=== PATIENT | male | born 2000 | race Two or more races ===

== ENCOUNTER 2021-01-22 14:38 | Emergency (ER) | payer SELFPAY ==
[~2021-01-22] VITALS: Ht 172.7 cm; Wt 73.0 kg
[2021-01-22] MEDS ORDERED: LORAZEPAM 0.5MG TABLET PO ONE (15:15)
[2021-01-22 16:06] LABS: BASOPHILS % 0.7 % (0.0-2.0); EOSINOPHILS % 2.2 % (0.0-5.0); HEMATOCRIT. 40.5 % (42.0-52.0); HEMOGLOBIN. 14.1 g/dL (14.0-18.0); LYMPHOCYTES % 22.7 % (20.0-50.0); MEAN CORPUSCULAR HEMOGLOBIN 30.1 pg (28.0-32.0); MEAN CORPUSCULAR VOLUME 86.6 fL (80.0-94.0); MEAN PLATELET VOLUME 7.9 fl (7.4-10.4); MONOCYTES % 7.6 % (2.0-8.0); NEUTROPHILS % 66.8 % (40.0-76.0); PLATELET 261 x1000/uL (130-400); RED BLOOD CELL COUNT 4.67 mill/uL (4.7-6.1); RED CELL DISTRIBUTION WIDTH 12.9 % (11.6-14.6)
[2021-01-22 16:14] LABS: CHLORIDE 110 mEq/L (98-107)
[2021-01-22 16:20] LABS: ETHANOL BLOOD < 10 mg/dL
[2021-01-22 16:22] LABS: CLARITY URINE TURBID (CLEAR); COLOR URINE YELLOW (YELLOW); KETONES URINE NEGATIVE (NEGATIVE); LEUKOCYTE ESTERASE URINE NEGATIVE (NEGATIVE); NITRITE URINE NEGATIVE (NEGATIVE); OCCULT BLOOD URINE NEGATIVE (NEGATIVE); PROTEIN URINE TRACE (NEGATIVE); SPECIFIC GRAVITY URINE 1.024 (1.005-1.030); UROBILINOGEN URINE 0.2 E.U./dL (0.2-1.0)
[2021-01-22 16:40] LABS: *AMPHETAMINES SCREEN URINE PRESUMTIVE POSITIVE (NEGATIVE); *BARBITURATES SCREEN URINE NEGATIVE (NEGATIVE); *BENZODIAZEPINES SCREEN URINE NEGATIVE (NEGATIVE); *COCAINE SCREEN URINE NEGATIVE (NEGATIVE); METHADONE URINE SCREEN NEGATIVE (NEGATIVE); OPIATES URINE SCREEN NEGATIVE (NEGATIVE)
[2021-01-22 16:41] LABS: CANNABINOID URINE SCREEN NEGATIVE (NEGATIVE); PHENCYCLIDINE URINE SCREEN NEGATIVE (NEGATIVE)
[2021-01-22 17:41] VITALS: BP 120/80
== END 2021-01-22 18:21 | disposition left against medical advice (07) ==
LOC: ER 14:38
DX: F15.10 Other stimulant abuse, uncomplicated (principal)
CPT/HCPCS: 36415; 80053; 80305; 80307; 80320; 80329; 81003; 85025; 93005; 99284; Z7610; G0480

== ENCOUNTER 2025-03-27 12:29 | Emergency (ER) | payer OTHER ==
[~2025-03-27] VITALS: Ht 167.6 cm; Wt 68.0 kg
[2025-03-27 12:32] VITALS: O2SAT 99
[2025-03-27 13:31] VITALS: BP 107/71; PULSE 67; RESP 16; TEMP 36.9; O2SAT 100
[2025-03-27] MEDS: BUPRENORPHINE 8MG SL TABLET SL ONE (13:34)
== END 2025-03-27 13:38 ==
LOC: ER 12:29
DX: F19.10 Other psychoactive substance abuse, uncomplicated (principal); J45.909 Unspecified asthma, uncomplicated; Z98.890 Other specified postprocedural states
CPT/HCPCS: 99283; Z7610; A4606